=== PATIENT | female | born 1990 | race Caucasian/White ===

== ENCOUNTER 2024-05-26 19:00 | Inpatient (IN) | payer BC ==
[~2024-05-26 19:00] MED LIST: HYDROcodone/Acetaminophen 5/325 mg Tablet PO PRN; Ibuprofen 800 MG TAB PO PRN; Lidocaine 1% (PF) 30 ML VIAL SC PRN; Misoprostol 200 MCG TAB PR PRN; Oxytocin 30 units/NS 500 ML 500 ML IV SCH; Promethazine HCl 25 MG/ML VIAL IM PRN; Tranexamic Acid 1,000 MG/10 ML VIAL IVP PRN; hydrALAZINE 20 MG/ML VIAL SLOW IVP PRN
[2024-05-27] MEDS: Misoprostol 100 MCG TAB VAG SCH (04:00)
[2024-05-27 04:17] LABS: Hematocrit 34.3 % (34.9-44.5); Hemoglobin 11.6 g/dL (12.0-15.5); Mean Corpuscular HGB CONC 33.8 g/dL (32.0-36.0); Mean Corpuscular Hemoglobin 30.9 pg (27.0-33.0); Mean Corpuscular Volume 91.2 fL (81.6-98.3); Mean Platelet Volume 9.6 fL (7.4-10.4); Platelet Count 214 10x3/uL (150-450); RBC Distribution Width 12.9 % (11.5-14.5); Red Blood Cell (RBC) Count 3.76 10x6/uL (3.90-5.03)
[2024-05-27 04:43] VITALS: BMI 27.4
[2024-05-27 04:58] LABS: HBsAg Index 0.21 S/CO (0-0.99); Hep B Surf Ag - L&D Non-Reactive S/CO (NonReactive)
[2024-05-27 05:00] LABS: Syphilis Antibody Nonreactive (Nonreactive); Syphilis Antibody Index 0.07 S/CO (<1.00 Non-Reactive)
[2024-05-27] MEDS: Lactated Ringer's 1,000 ML IV SCH (13:21)
[2024-05-27] MEDS: fentaNYL/Ropivacaine Epidural 100 ML ONE (14:07)
[2024-05-27] MEDS ORDERED: Ondansetron PF 4 MG/2 ML Vial IVP PRN (14:12)
[2024-05-27] MEDS ORDERED: Promethazine HCl 25 MG/ML VIAL IM PRN (14:12)
[2024-05-27] MEDS ORDERED: Lactated Ringer's 500 ML IV PRN (14:12)
[2024-05-27] MEDS ORDERED: Naloxone HCl 0.4 mg/ml Vial IVP PRN ×2 (14:12)
[2024-05-27] MEDS ORDERED: ePHEDrine Sulfate 50 MG/10 ML VIAL SLOW IVP PRN (14:12)
[2024-05-27] MEDS ORDERED: diphenhydrAMINE 50 MG/ML VIAL IVP PRN (14:12)
[2024-05-27] MEDS ORDERED: Moisturizing Cream (Eucerin) 113 GM JAR TOP PRN (14:12)
[2024-05-27] MEDS ORDERED: Communication Order-Pharmacy FS SCH (14:15)
[2024-05-27] MEDS: Oxytocin 30 units/NS 500 ML 500 ML IV SCH (14:46)
[2024-05-27] MEDS: Ondansetron PF 4 MG/2 ML Vial IVP PRN (22:51)
[2024-05-27] MEDS: Acetaminophen 325 MG TAB PO PRN (23:45)
[2024-05-27] MEDS: fentaNYL 2 mcg/Ropivacaine 0.2% Epidural 100 ML CADD EPIDURAL SCH (23:57)
[2024-05-28] MEDS: Ampicillin 2 GM in Sodium Chloride 0.9% 100 ML IVPB SCH (00:26)
[2024-05-28] MEDS: SODIUM CHLORIDE 0.9% IVPB SCH (01:08)
[2024-05-28] MEDS: GENTAMICIN SULFATE IVPB SCH (01:08)
[2024-05-28] MEDS: Misoprostol 100 MCG TAB ONE (03:11)
[2024-05-28] MEDS: Ampicillin 2 GM VIAL ONE (03:12)
[2024-05-28] MEDS: Calcium Carbonate 500 MG ChewTAB PO SCH (09:51)
[2024-05-28] MEDS ORDERED: Bicitra 30 ML UDCUP PO PRN (13:09)
[2024-05-28] MEDS ORDERED: Famotidine/PF 20 mg/2ml Vial SLOW IVP PRN (13:09)
[2024-05-28] MEDS ORDERED: CEFAZOLIN 2 GM in Sodium Chloride 0.9% 100 ML IVPB SCH (13:15)
[2024-05-28] MEDS ORDERED: Azithromycin 500 MG in Sodium Chloride 0.9% 250 ML 250 ML IVPB SCH (13:15)
[2024-05-28] MEDS: Methylergonovine 0.2 MG/ML VIAL IM PRN (14:10)
[2024-05-28 14:24] LABS: Analyzer IN Cardio CS NICU; RapidComm Collect By OR NURSE
[2024-05-28 14:25] LABS: Analyzer IN Cardio CS NICU; RapidComm Collect By OR NURSE; pH (Cord, venous) 7.419 (7.250-7.350)
[2024-05-28] MEDS ORDERED: HYDROmorphone 0.5 MG/0.5 ML SYRINGE SLOW IVP PRN (15:08)
[2024-05-28] MEDS ORDERED: Ketorolac Tromethamine 30 MG (1 mL) VIAL IVP PRN (15:08)
[2024-05-28] MEDS ORDERED: Naloxone HCl 0.4 mg/ml Vial IVP PRN ×2 (15:08)
[2024-05-28] MEDS ORDERED: Moisturizing Cream (Eucerin) 113 GM JAR TOP PRN (15:08)
[2024-05-28] MEDS ORDERED: Promethazine HCl 25 MG/ML VIAL IM PRN ×2 (15:08→17:34)
[2024-05-28] MEDS ORDERED: Meperidine HCl/PF 25 MG (1 mL) VIAL SLOW IVP PRN (15:08)
[2024-05-28] MEDS ORDERED: Ondansetron PF 4 MG/2 ML Vial IVP PRN ×3 (15:08→17:34)
[2024-05-28] MEDS ORDERED: fentaNYL 50 mcg/mL 1 mL Vial SLOW IVP PRN (15:08)
[2024-05-28] MEDS ORDERED: Naloxone HCl 0.4 mg/ml Vial IV PRN (15:08)
[2024-05-28] MEDS ORDERED: diphenhydrAMINE 50 MG/ML VIAL IVP PRN (15:08)
[2024-05-28] MEDS ORDERED: Ketorolac Tromethamine 30 MG (1 mL) VIAL IVP SCH (15:15)
[2024-05-28] MEDS ORDERED: Misoprostol 200 MCG TAB PR PRN (17:34)
[2024-05-28] MEDS ORDERED: diphenhydrAMINE 25 MG CAP PO PRN (17:34)
[2024-05-28] MEDS ORDERED: Simethicone Chewable 80 MG TAB PO PRN (17:34)
[2024-05-28] MEDS ORDERED: hydrALAZINE 20 MG/ML VIAL SLOW IVP PRN (17:34)
[2024-05-28] MEDS ORDERED: Lanolin Ointment 7 GM TUBE TOP PRN (17:34)
[2024-05-28] MEDS ORDERED: Acetaminophen 325 MG TAB PO PRN (17:34)
[2024-05-28] MEDS: Oxytocin 10 UNITS/ML VIAL ONE ×2 (18:36)
[2024-05-28] MEDS: Azithromycin 500 MG VIAL ONE (18:36)
[2024-05-28] MEDS: Carboprost 250 MCG/ML AMP ONE (18:36)
[2024-05-28] MEDS: CEFAZOLIN 2 GM VIAL ONE (18:36)
[2024-05-28] MEDS: Ondansetron PF 4 MG/2 ML Vial ONE (18:36)
[2024-05-28] MEDS: Lidocaine 2% MPF 10 ML AMP (For Epidural Use) ONE (18:36)
[2024-05-28] MEDS: Dexmedetomidine 200 MCG/2 ML VIAL ONE (18:36)
[2024-05-28] MEDS: PHENYLEPHRINE-NS 100 MCG/ML 10 ML SYRINGE ONE (18:37)
[2024-05-28] MEDS: Promethazine HCl 25 MG/ML VIAL ONE (18:37)
[2024-05-28] MEDS: fentaNYL 50 mcg/mL 1 mL Vial ONE ×2 (18:37)
[2024-05-28] MEDS: Morphine PF 10 MG/10 ML VIAL ONE (18:37)
[2024-05-28] MEDS: Famotidine/PF 20 mg/2ml Vial ONE (18:37)
[2024-05-28] MEDS: Ketorolac Tromethamine 30 MG (1 mL) VIAL ONE (18:37)
[2024-05-28] MEDS: Lactated Ringer's 1,000 ML IV SCH (20:11)
[2024-05-28] MEDS: Ferrous Sulfate 325 MG TAB PO SCH (20:11)
[2024-05-28] MEDS: Boostrix 0.5 ML (Tdap) VIAL (>/=7 yrs of age) IM ONE (20:14)
[2024-05-28] MEDS: Docusate 100 MG CAP PO SCH (20:24)
[2024-05-28] MEDS: Ketorolac Tromethamine 30 MG (1 mL) VIAL IVP PRN (20:45)
[2024-05-28] MEDS ORDERED: Ibuprofen 800 MG TAB PO SCH (21:00)
[2024-05-29] MEDS: HYDROcodone/Acetaminophen 5/325 mg Tablet PO PRN ×2 (02:05→13:36)
[2024-05-29 04:17] LABS: Hemoglobin 8.5 g/dL (12.0-15.5); Mean Corpuscular Hemoglobin 31.5 pg (27.0-33.0); Mean Corpuscular Volume 92.6 fL (81.6-98.3); Mean Platelet Volume 9.5 fL (7.4-10.4); Platelet Count 170 10x3/uL (150-450); RBC Distribution Width 13.3 % (11.5-14.5)
[2024-05-29] MEDS: Prenatal Vitamin 1 TAB PO SCH (08:49)
[2024-05-29] MEDS: Ibuprofen 800 MG TAB PO SCH (21:08)
[2024-05-30 10:08] LABS: Hematocrit 27.4 % (34.9-44.5); Hemoglobin 9.2 g/dL (12.0-15.5)
[2024-05-30 11:27] VITALS: BP 107/68; TEMP 97.8
== END 2024-05-30 17:20 | disposition home or self-care (01) | DRG 786 ==
LOC: CSHLD 05-27 01:55 → CSHPP 05-28 18:05
PROVIDERS: ADMIT Obstetrics & Gynecology; ATTEND Obstetrics & Gynecology
PROC: 10D00Z1 Extraction of Products of Conception, Low, Open Approach (ICD-10-PCS; principal; 2024-05-27)
PROC: 3E0DXGC Introduction of Other Therapeutic Substance into Mouth and Pharynx, External Approach (ICD-10-PCS; 2024-05-27)
PROC: 10907ZC Drainage of Amniotic Fluid, Therapeutic from Products of Conception, Via Natural or Artificial Opening (ICD-10-PCS; 2024-05-27)
DX: O48.0 Post-term pregnancy (principal); O41.1230 Chorioamnionitis, third trimester, not applicable or unspecified; O77.0 Labor and delivery complicated by meconium in amniotic fluid; O62.1 Secondary uterine inertia; O76 Abnormality in fetal heart rate and rhythm complicating labor and delivery; O34.13 Maternal care for benign tumor of corpus uteri, third trimester; D25.9 Leiomyoma of uterus, unspecified; Z3A.40 40 weeks gestation of pregnancy; Z37.0 Single live birth
CPT/HCPCS: 36415; 51702; 82805; 85014; 85018; 85027; 86780; 86850; 86900; 86901; 87040; 87340; J0290; J1580; J1885; J2210; J2274; J2405; J2550; J2590; J3010; J3490; J7120